=== PATIENT | female | born 1985 | race American Indian/Alaskan Native ===

== ENCOUNTER 2021-03-31 12:24 | Emergency (ER) | payer MEDICAID ==
[2021-03-31 12:44] VITALS: BP 128/92
[2021-03-31] MEDS ORDERED: BENZOCAINE 20% TOP SPRAY 0.5 ML UNIT DOSE MM ONE (14:00)
--- NOTE | 2021-03-31 14:21 | Emergency Department Report ---
ED General Adult HPI - General Chief complaint: Skin/Abscess/Foreign Body Stated complaint: POSS FOOD BONE STUCK IN THROAT Time Seen by Provider: 03/31/21 12:50 Source: patient Mode of arrival: Ambulatory Limitations: No Limitations - History of Present Illness Initial comments: Patient is a 35-year-old female presents emergency room complaints of a possible fishbone stuck in her throat. She states yesterday she ate salmon and did not realize that there were bones present. She states that whenever she swallows she feels pain but is still able to swallow. She is able to tolerate her secretions and p.o. intake. She states last night she had one episode of vomiting after she tried to use oil and vinegar and other home remedies to help expel the fishbone. She denies any hemoptysis, hematemesis, melena, hematochezia. No past medical history. No allergies to medications. - Related Data Previous Rx's Medication Instructions Recorded Last Taken Type Ibuprofen Oral Liqd [Motrin Oral 600 mg PO Q8HR PRN #1 bottle 03/31/21 Unknown Rx Liq 100 mg/5 ml] Lidocaine Viscous 2% 15 ml MM Q6HR PRN #1 bottle 03/31/21 Unknown Rx Allergies Allergy/AdvReac Type Severity Reaction Status Date / Time No Known Allergies Allergy Verified 03/31/21 12:41 ED Review of Systems ROS: Stated complaint: POSS FOOD BONE STUCK IN THROAT Other details as noted in HPI Comment: All other systems reviewed and negative ED Past Medical Hx - Past Medical History Previous Medical History?: No - Surgical History Past Surgical History?: No - Medications Home Medications: Home Medications Medication Instructions Recorded Confirmed Last Taken Type Ibuprofen Oral Liqd [Motrin Oral 600 mg PO Q8HR PRN #1 bottle 03/31/21 Unknown Rx Liq 100 mg/5 ml] Lidocaine Viscous 2% 15 ml MM Q6HR PRN #1 bottle 03/31/21 Unknown Rx ED Physical Exam - General Limitations: No Limitations General appearance: alert, in no apparent distress - Head Head exam: Present: atraumatic, normocephalic - Eye Eye exam: Present: normal appearance - ENT ENT exam: Present: mucous membranes moist, other (there is an obvious visualized left posterior orpharynx foreign body it is linear and white in coloration consistent with fish bone) - Respiratory Respiratory exam: Present: normal lung sounds bilaterally. Absent: respiratory distress, wheezes, rales, rhonchi, stridor, chest wall tenderness, accessory muscle use, decreased breath sounds, prolonged expiratory - Cardiovascular Cardiovascular Exam: Present: regular rate, normal rhythm, normal heart sounds. Absent: systolic murmur, diastolic murmur, rubs, gallop - Neurological Exam Neurological exam: Present: alert, oriented X3 - Psychiatric Psychiatric exam: Present: normal affect, normal mood - Skin Skin exam: Present: warm, dry, intact ED Course Vital Signs 03/31/21 12:41 Temperature 98.1 F Pulse Rate 80 Respiratory 16 Rate Blood Pressure 128/92 [Left] O2 Sat by Pulse 99 Oximetry ED Medical Decision Making - Medical Decision Making Patient is a 35-year-old female presents emergency room complaints of a possible fishbone stuck in her throat. She states yesterday she ate salmon and did not realize that there were bones present. She states that whenever she swallows she feels pain but is still able to swallow. She is able to tolerate her secretions and p.o. intake. She states last night she had one episode of vomiting after she tried to use oil and vinegar and other home remedies to help expel the fishbone. She denies any hemoptysis, hematemesis, melena, hematochezia. No past medical history. No allergies to medications. Vitals are normal. On exam:there is an obvious visualized left posterior orpharynx foreign body it is linear and white in coloration consistent with fish bone. Nurse used benzocaine spray to numb the area. I went back to reexamine and patient states that her throat feels better, the foreign body is no longer present in the oropharynx, patient likely swallowed foreign body, she has no difficulty tolerating p.o. intake, she has no difficulty breathing or swallowing, and states that she feels better. Patient given prescription for medications. Discussed return precautions. Discussed the importance of outpatient follow-up. Discussed case with Dr. Pimentel, ER attending who is agreeable with plan. Advised patient Please use medication as prescribed. Follow-up with your primary care doctor for reexamination. Return to emergency room immediately for any new or worsening symptoms including but not limited to blood in stool, blood in vomit, blood with coughing, worsening pain, etc. Critical care attestation.: If time is entered above; I have spent that time in minutes in the direct care of this critically ill patient, excluding procedure time. ED Disposition Clinical Impression: Foreign body in throat Qualifiers: Encounter type: initial encounter Qualified Code(s): T17.208A - Unspecified foreign body in pharynx causing other injury, initial encounter Disposition: HOME / SELF CARE / HOMELESS Is pt being admited?: No Does the pt Need Aspirin: No Condition: Stable Instructions: Swallowed Foreign Body, Adult Additional Instructions: Please use medication as prescribed. Follow-up with your primary care doctor for reexamination. Return to emergency room immediately for any new or worsening symptoms including but not limited to blood in stool, blood in vomit, blood with coughing, worsening pain, etc. Prescriptions: Lidocaine Viscous 2% 15 ml MM Q6HR PRN #1 bottle PRN Reason: sore throat Ibuprofen Oral Liqd [Motrin Oral Liq 100 mg/5 ml] 600 mg PO Q8HR PRN #1 bottle PRN Reason: pain Referrals: your, primary care doctor [Other] - 2-3 Days Time of Disposition: 14:33 Print Language: HEBREW
== END 2021-03-31 20:07 | disposition home or self-care (01) ==
LOC: ED 12:24
DX: T17.228A Food in pharynx causing other injury, initial encounter (principal); Z79.899 Other long term (current) drug therapy; X58.XXXA Exposure to other specified factors, initial encounter; Y93.89 Activity, other specified; Y92.89 Other specified places as the place of occurrence of the external cause; Y99.8 Other external cause status
CPT/HCPCS: 99282